=== PATIENT | male | born 1960 | race Caucasian/White ===

== ENCOUNTER 2017-09-29 08:04 | Emergency (ER) | payer OTHER ==
[~2017-09-29] VITALS: Ht 170.2 cm; Wt 104.3 kg
[2017-09-29 08:10] VITALS: BP 143/93; Ht 170.2 cm; Wt 104.3 kg
== END 2017-09-29 08:22 | disposition other institution (70) ==
LOC: ED 08:04
DX: Z02.89 Encounter for other administrative examinations (principal); I10 Essential (primary) hypertension; Z88.2 Allergy status to sulfonamides